=== PATIENT | male | born 1955 | race Caucasian/White ===

== ENCOUNTER → 2018-07-05 | Outpatient (CLI) | payer BC ==
[~2018-07-05] MED LIST: ALBU6.7H INH; AMOX250C17 PO; BECL10.62 INH; CEFAZOLIN 1,000 MG ONE; CHOL100012 PO; CLON2TAB9 PO; DEXAMETHASONE 4 MG/ML, 1ML ONE; FENTANYL PF 250 MCG/5ML ONE; GLYCOPYRROLATE 0.2MG/1ML, 5ML ONE; METO25TA35 PO; MIDAZOLAM 1 MG/ML, 2ML ONE; MULT-308 PO; NEOSTIGMINE 1 MG/ML, 10ML ONE; OMEG1CAP34 PO; OMEP-110 PO; ONDANSETRON 2MG/ML, 2ML ONE; POTA10TA12 PO; PROPOFOL 10 MG/ML, 20ML ONE; QUET25TA PO; ROCURONIUM 10MG/ML,5ML ONE; SERT100T PO; TURM500C4 PO
[2018-07-05 12:53] LABS: BASOPHILS # (AUTO) 0.03 x10^3/uL (0-0.1); BASOPHILS % (AUTO) 0 % (0-1); EOSINOPHILS # (AUTO) 0.42 x10^3/uL (0-0.4); EOSINOPHILS % (AUTO) 7 % (1-7); LYMPHOCYTES % (AUTO) 30 % (22-44); MD NO; MEAN CORPUSCULAR HEMOGLOBIN 24.5 pg (27.5-34.5); MEAN CORPUSCULAR HGB CONC 32.5 g/dL (33.2-36.2); MEAN CORPUSCULAR VOLUME 75.3 fL (81-97); MEAN PLATELET VOLUME 10.1 fL (7.4-10.4); MONOCYTES # (AUTO) 0.67 x10^3/uL (0.2-0.8); MONOCYTES % (AUTO) 11 % (2-9); NEUTROPHILS # (AUTO) 3.01 x10^3/uL (1.8-6.8); NEUTROPHILS % (AUTO) 51 % (42-75); PLATELET COUNT 208 x10^3/uL (130-400); RED BLOOD COUNT 4.85 x10^6/uL (4.38-5.82)
[2018-07-05 12:58] LABS: MICROSCOPIC AUTO
[2018-07-05 13:01] LABS: CULTURE INDICATED? YES
== END | disposition home or self-care (01) ==
LOC: STAR 11:18
PROVIDERS: ATTEND Orthopaedic Surgery
DX: Z01.818 Encounter for other preprocedural examination (principal); M17.11 Unilateral primary osteoarthritis, right knee
CPT/HCPCS: 36415; 81001; 85025; 87081; 87086; 87806; 93005; G0475

== ENCOUNTER 2018-07-11 05:45 | Inpatient (IN) | payer BC ==
[2018-07-05 13:19] VITALS: BP 117/78
[~2018-07-11] VITALS: Ht 154.9 cm; Wt 73.2 kg
[~2018-07-11 05:45] MED LIST changes: -CEFAZOLIN 1,000 MG ONE; -DEXAMETHASONE 4 MG/ML, 1ML ONE; -FENTANYL PF 250 MCG/5ML ONE; -GLYCOPYRROLATE 0.2MG/1ML, 5ML ONE; -MIDAZOLAM 1 MG/ML, 2ML ONE; -NEOSTIGMINE 1 MG/ML, 10ML ONE; -ONDANSETRON 2MG/ML, 2ML ONE; -PROPOFOL 10 MG/ML, 20ML ONE; -ROCURONIUM 10MG/ML,5ML ONE
[2018-07-11] MEDS ORDERED: VANCOMYCIN PMX 1GM/200ML 200 ML IV STA (06:03)
[2018-07-11] MEDS ORDERED: ACETAMINOPHEN 500 MG TABLET PO ONE (06:30)
[2018-07-11] MEDS ORDERED: GABAPENTIN 300 MG CAPSULE PO ONE (06:30)
[2018-07-11] MEDS ORDERED: LIDOCAINE-MPF 1%, 2ML INFIL ONE (06:30)
[2018-07-11] MEDS ORDERED: TRANEXAMIC ACID 100 MG/ML, 10ML ONE (06:35)
[2018-07-11] MEDS ORDERED: ROPIvacaine/PF 0.2%, 20 ML ONE (06:35)
[2018-07-11] MEDS ORDERED: morphine SULFATE/PF 1 MG/ML, 10ML ONE (06:35)
[2018-07-11] MEDS ORDERED: KETOROLAC 60 MG/2 ML ONE (06:35)
[2018-07-11] MEDS ORDERED: EPINEPHRINE 1 MG/ML, 1ML ONE (06:36)
[2018-07-11] MEDS ORDERED: BACITRACIN 50,000 UNIT ONE (06:36)
[2018-07-11] MEDS: LACTATED RINGERS 1,000 ML IV SCH ×2 (06:42→16:31)
[2018-07-11] MEDS ORDERED: PROMETHAZINE 25 MG SUPP PR PRN (07:30)
[2018-07-11] MEDS ORDERED: PROMETHAZINE 25 MG/ML, 1ML IM PRN ×2 (07:30)
[2018-07-11] MEDS ORDERED: ONDANSETRON 2MG/ML, 2ML IV PRN (07:30)
[2018-07-11] MEDS ORDERED: OXYcodone 5 MG/5 ML ORAL.SOL UDC PO PRN (07:30)
[2018-07-11] MEDS ORDERED: ONDANSETRON ODT 8 MG PO PRN (07:30)
[2018-07-11] MEDS ORDERED: PROMETHAZINE 25 MG/ML, 1ML IV PRN (07:30)
[2018-07-11] MEDS ORDERED: hydrALAzine 20 MG/ML, 1ML IV PRN (07:30)
[2018-07-11] MEDS ORDERED: HYDROmorphone 1 MG/ML, 1ML IV PRN (07:30)
[2018-07-11] MEDS ORDERED: LABETALOL 5MG/ML, 20ML IV PRN (07:30)
[2018-07-11] MEDS ORDERED: FENTANYL PF 100 MCG/2ML IV PRN (07:30)
[2018-07-11] MEDS ORDERED: PROMETHAZINE 12.5 MG SUPP PR PRN (07:30)
[2018-07-11] MEDS ORDERED: MORPHINE SULFATE 4 MG/ML, 1ML IVPush PRN (07:30)
[2018-07-11] MEDS ORDERED: GLYCOPYRROLATE 0.2MG/1ML, 5ML ONE (07:35)
[2018-07-11] MEDS ORDERED: NEOSTIGMINE 1 MG/ML, 10ML ONE (07:35)
[2018-07-11] MEDS ORDERED: CEFAZOLIN 1,000 MG ONE (07:35)
[2018-07-11] MEDS ORDERED: DEXAMETHASONE 4 MG/ML, 1ML ONE (07:35)
[2018-07-11] MEDS ORDERED: ONDANSETRON 2MG/ML, 2ML ONE (07:35)
[2018-07-11] MEDS ORDERED: ROCURONIUM 10 MG/ML,10ML ONE (07:35)
[2018-07-11] MEDS ORDERED: PROPOFOL 10 MG/ML, 20ML ONE (07:35)
[2018-07-11] MEDS ORDERED: ACETAMINOPHEN 325 MG TABLET PO PRN (09:30)
[2018-07-11] MEDS ORDERED: ONDANSETRON 2MG/ML, 2ML IVPush PRN (09:30)
[2018-07-11] MEDS ORDERED: ZOLPIDEM 5MG TABLET PO PRN (09:30)
[2018-07-11] MEDS ORDERED: DIPHENHYDRAMINE 25 MG CAPSULE PO PRN (09:30)
[2018-07-11] MEDS ORDERED: morphine SULFATE 10 MG/ML, 1ML IVPush PRN (09:30)
[2018-07-11] MEDS ORDERED: LORazepam 2 MG/ML, 1ML IVPush PRN (09:30)
[2018-07-11] MEDS ORDERED: MEPERIDINE/PF 50 MG/ML ONE (10:14)
[2018-07-11] MEDS: MEPERIDINE/PF 25MG/0.5ML IVPush PRN ×2 (10:16→10:30)
[2018-07-11] MEDS ORDERED: ACETAMINOPHEN 650 MG/20.3 ML UDC ONE (10:18)
[2018-07-11] MEDS ORDERED: OXYcodone 5 MG/5 ML ORAL.SOL UDC ONE (10:18)
[2018-07-11] MEDS: BUDESONIDE 0.5 MG/2 ML INHA NPPB SCH ×2 (11:30→21:02)
[2018-07-11] MEDS ORDERED: TRANEXAMIC ACID 1,000 MG in SODIUM CHLORIDE 0.9% 100 ML IV ONE (12:00)
[2018-07-11] MEDS: D5%-0.45% NACL 1,000 ML IV SCH ×2 (12:10→19:44)
[2018-07-11] MEDS: OXYcodone/APAP 7.5/325MG TABLET PO PRN ×3 (13:18→22:49)
[2018-07-11 13:55] VITALS: BP 97/54
[2018-07-11] MEDS: CEFAZOLIN PMX 1GM/50ML 50 ML IVPB SCH (16:18)
[2018-07-11] MEDS: ALBUTEROL SULFATE 2.5 MG/3 ML NPPB PRN (16:23)
[2018-07-11] MEDS: METOPROLOL TARTRATE 25 MG TABLET PO SCH (17:42)
[2018-07-11 17:43] VITALS: BP 94/45
[2018-07-11 18:58] VITALS: BP 99/52
[2018-07-11 20:58] LABS: CLOSTRIDIUM DIFFICILE ANTIGEN NEGATIVE; CLOSTRIDIUM DIFFICILE TOXIN NEGATIVE (Negative)
[2018-07-11] MEDS: QUETIAPINE 25MG TABLET PO SCH (21:06)
[2018-07-11 23:59] VITALS: BP 93/52
[2018-07-12] MEDS: CEFAZOLIN PMX 1GM/50ML 50 ML IVPB SCH ×2 (00:04→08:59)
[2018-07-12] MEDS: D5%-0.45% NACL 1,000 ML IV SCH ×3 (00:06→11:00)
[2018-07-12] MEDS: OXYcodone/APAP 7.5/325MG TABLET PO PRN ×2 (03:13→10:20)
[2018-07-12 04:47] VITALS: BP 95/47
[2018-07-12] MEDS: METOPROLOL TARTRATE 25 MG TABLET PO SCH (05:54)
[2018-07-12] MEDS ORDERED: OMEPRAZOLE 20 MG CAPSULE.DR PO SCH (06:00)
[2018-07-12] MEDS ORDERED: VANCOMYCIN PMX 1GM/200ML 200 ML IVPB ONE (06:00)
[2018-07-12 07:35] VITALS: BP 104/52
[2018-07-12] MEDS: ALBUTEROL SULFATE 2.5 MG/3 ML NPPB PRN (08:37)
[2018-07-12] MEDS: BUDESONIDE 0.5 MG/2 ML INHA NPPB SCH (08:37)
[2018-07-12] MEDS ORDERED: CEFAZOLIN PMX 1GM/50ML 50 ML ONE (08:56)
[2018-07-12] MEDS ORDERED: MULTIVITAMIN INTRINS/IRON CAPSULE PO SCH (09:00)
[2018-07-12] MEDS ORDERED: PRENATAL VIT/IRON/FA 1 EACH TABLET PO SCH (09:00)
[2018-07-12] MEDS ORDERED: POTASSIUM CHLORIDE 10 MEQ TABLET.ER PO SCH (09:00)
[2018-07-12] MEDS ORDERED: CHOLECALCIFEROL 1,000 UNIT TABLET PO SCH (09:00)
[2018-07-12] MEDS ORDERED: SERTRALINE 100MG TABLET PO SCH (09:00)
[2018-07-12] MEDS ORDERED: OMEGA-3/FISH OIL CAPSULE PO SCH (09:00)
[2018-07-12] MEDS: QUETIAPINE 25MG TABLET PO SCH (10:22)
[2018-07-12 13:15] VITALS: BP 130/76
[2018-07-12] MEDS ORDERED: ASPIRIN 325 MG TABLET EC PO SCH (17:00)
[2018-07-12] MEDS ORDERED: DOCUSATE 100 MG CAPSULE PO SCH (21:00)
== END 2018-07-12 13:40 | disposition home or self-care (01) | DRG 470 ==
LOC: OUT 05:45 → ORIP 09:24 → EDSEX 09:24 → 4NOR 10:47 → DCLOUNGE 07-12 13:26
PROVIDERS: ADMIT Orthopaedic Surgery; ATTEND Orthopaedic Surgery
PROC: 0SRC0J9 Replacement of Right Knee Joint with Synthetic Substitute, Cemented, Open Approach (ICD-10-PCS; principal; 2018-07-11 07:30)
DX: M17.11 Unilateral primary osteoarthritis, right knee (principal); I10 Essential (primary) hypertension; I48.91 Unspecified atrial fibrillation; E66.01 Morbid (severe) obesity due to excess calories; K21.9 Gastro-esophageal reflux disease without esophagitis; J45.909 Unspecified asthma, uncomplicated; Z88.2 Allergy status to sulfonamides; Z91.041 Radiographic dye allergy status; Z91.018 Allergy to other foods; Z68.30 Body mass index [BMI] 30.0-30.9, adult; Z82.49 Family history of ischemic heart disease and other diseases of the circulatory system; Z79.82 Long term (current) use of aspirin; Z82.61 Family history of arthritis
CPT/HCPCS: 36415; 73564; J3490; J7613; J7626; 85018; 87324; 94640; C1713; G0378; J0171; J0690; J1100; J1885; J2175; J2274; J2405; J2704; J2710; J2795; J3370; C1776; J7120